=== PATIENT | female | born 1945 | race Caucasian/White ===

== ENCOUNTER → 2016-07-27 | Outpatient (CLI) | payer MEDICARE, BC ==
[~2016-07-27] MED LIST: AMLODIPINE BESY10 MG PO; ASPIRIN81 M1 PO; AZULFIDINE500 M1; B COMPLEX1 CA1 PO; BLACK COHOSH40 M1 PO; CALCIUM CITRATE1 T15 PO; FISH OIL 1,0001 CAP PO; HUMALOG100 U/M1 SUBQ; HUMIRA40 MG/0.1 SQ; LANSOPRAZOLE30 MG PO; LANTUS100 U/ML SUBQ; LEVOTHROID88 MCG PO; LOSARTAN-HCTZ1 EAC3 PO; METOPROLOL TART25 MG PO; MULTICHEW1 TAB.CHEW PO; PRAVACHOL80 MG PO; PREMARIN0.3 MG PO; TIROSINT88 MCG PO; ZYRTEC10 M2 PO
[2016-07-27 11:42] LABS: ALBUMIN SERUM 3.6 g/dL (3.5-5.0); BILIRUBIN,TOTAL 0.6 mg/dL (0.2-2.0); BUN/CREATININE RATIO 16.66; CALCIUM SERUM 8.7 mg/dL (8.4-10.2); CREATININE SERUM 0.6 mg/dL (0.6-1.4); POTASSIUM 3.6 mmol/L (3.5-5.1)
== END | disposition home or self-care (01) ==
LOC: SLABONLY 10:42
PROVIDERS: Internal Medicine Endocrinology, Diabetes & Metabolism
DX: E10.10 Type 1 diabetes mellitus with ketoacidosis without coma (principal); I10 Essential (primary) hypertension; E78.5 Hyperlipidemia, unspecified
CPT/HCPCS: 36415; 80053; 80061; 82043; 82570; 83036; 84443

== ENCOUNTER → 2016-11-09 | Outpatient (CLI) | payer MEDICARE, BC ==
[2016-11-09 11:10] LABS: ALBUMIN SERUM 3.8 g/dL (3.5-5.0); BILIRUBIN,TOTAL 0.4 mg/dL (0.2-2.0); BUN/CREATININE RATIO 23.33; CREATININE SERUM 0.6 mg/dL (0.6-1.4); GLOM FILT RATE Estimated 92.4 mL/min (>60); POTASSIUM 3.5 mmol/L (3.5-5.1); PROTEIN TOTAL SERUM 7.6 g/dL (6.0-8.3)
[2016-11-10 18:03] LABS: MICROALB UR (PNL) 1.3 mg/dL (***)
== END | disposition home or self-care (01) ==
LOC: SLABONLY 10:21
PROVIDERS: Internal Medicine Endocrinology, Diabetes & Metabolism
DX: E11.21 Type 2 diabetes mellitus with diabetic nephropathy (principal); E78.4 Other hyperlipidemia
CPT/HCPCS: 36415; 80053; 82043; 82570; 83036; 84443